=== PATIENT | male | born 1965 | race African-American/Black ===

== ENCOUNTER 2024-04-04 18:36 | Emergency (ER) | payer OTHER ==
[~2024-04-04] VITALS: Ht 182.9 cm; Wt 100.0 kg
[~2024-04-04 18:36] MED LIST: AMLO10TA80 PO; ASPI-1406 PO; BENA1TAB19 PO
[2024-04-04 18:44] VITALS: O2SAT 100
[2024-04-04 21:14] LABS: BASOPHILS % 0.7 % (0.0-2.0); DIFFERENTIAL COMMENT 0; EOSINOPHILS % 1.7 % (0.0-5.0); HEMATOCRIT. 37.8 % (42.0-52.0); HEMOGLOBIN. 11.7 g/dL (14.0-18.0); LYMPHOCYTES % 20.9 % (20.0-50.0); MEAN CORPUSCULAR HEMOGLOBIN 22.5 pg (28.0-32.0); MEAN CORPUSCULAR HGB CONC 31.1 g/dL (31.0-37.0); MEAN CORPUSCULAR VOLUME 72.3 fL (80.0-94.0); MEAN PLATELET VOLUME 8.6 fl (7.4-10.4); MONOCYTES % 11.7 % (2.0-8.0); PLATELET 167 x1000/uL (130-400); RED BLOOD CELL COUNT 5.23 mill/uL (4.7-6.1); RED CELL DISTRIBUTION WIDTH 13.9 % (11.6-14.6); WHITE BLOOD COUNT 3.7 x1000/uL (4.5-11.0)
[2024-04-04 21:23] LABS: CHLORIDE 108 mEq/L (98-107); POTASSIUM 3.7 mEq/L (3.5-5.1); SODIUM 140 mEq/L (136-145)
[2024-04-04 21:24] LABS: CARBON DIOXIDE 27 mEq/L (21-32)
[2024-04-04 21:25] LABS: CALCIUM 9.2 mg/dL (8.7-10.4)
[2024-04-04 21:29] LABS: CREATININE 1.3 mg/dL (0.6-1.3)
[2024-04-04 21:30] LABS: GLUCOSE 87 mg/dL (70-105); TROPONIN I HIGH SENSITIVITY 7 ng/L (3.0-53); UREA NITROGEN BLOOD 17 mg/dL (9-23)
[2024-04-04] MEDS: HYDRALAZINE 20MG/ML VIAL IV ONE (22:42)
[2024-04-04 22:55] VITALS: BP 166/98; PULSE 84; RESP 18; TEMP 37.16964; O2SAT 100
== END 2024-04-04 23:00 | disposition short-term general hospital (02) ==
LOC: ER 18:36
DX: G45.9 Transient cerebral ischemic attack, unspecified (principal); I10 Essential (primary) hypertension; Z86.73 Personal history of transient ischemic attack (TIA), and cerebral infarction without residual deficits; Z79.82 Long term (current) use of aspirin; Z79.899 Other long term (current) drug therapy
CPT/HCPCS: 99291; 96374; 70450; 80048; 83880; 85025; 85610; 84484; 36415; 71045; 93005; J0360; 99285